=== PATIENT | male | born 1940 | race American Indian/Alaskan Native ===

== ENCOUNTER 2017-02-11 05:54 | Day surgery (SDC) | payer OTHER ==
[2017-02-10 14:45] VITALS: BMI 24.7
[2017-02-11] MEDS ORDERED: Propofol 10 mg/ml Inj (20 ML) ONE ×3 (07:43→08:44)
[2017-02-11] MEDS ORDERED: Lidocaine 2% Jelly (Uro-Jet) ONE (08:13)
[2017-02-11] MEDS ORDERED: Iohexol 240 (50 ml) ONE (08:13)
[2017-02-11] MEDS ORDERED: cefTRIAXone IV 1 gm in Dextros 50 ML IVPB ONE (08:13)
[2017-02-11] MEDS ORDERED: HYDROmorphone 0.5 mg/0.5 ml ISec IVP PRN (09:00)
--- NOTE | 2017-02-11 09:40 | PCM.SURG1 ---
Surgeon's Initial Post Op Note - Surgeon's Notes Surgeon: Kira ALMONTE Ballroom Dancer: NONE Type of Anesthesia: General Mask Pre-Operative Diagnosis: HEMATURIA Operative Findings: SAME. BPH. BLEEDING OF PROSTATIC ORIGIN Post-Operative Diagnosis: SAME Operation Performed: CYSTO. BILAT RTG PYELOGRAM. TUR-BX OF PROSTATE Specimen/Specimens Removed: PROSTATE Estimated Blood Loss: EBL {In ML}: 0 Blood Products Given: N/A Post-Op Condition: Good Date of Surgery/Procedure: 02/11/17 Time of Surgery/Procedure: 09:00
[2017-02-11 11:34] VITALS: BP 137/82; PULSE 56; RESP 18; TEMP 97.1; O2SAT 99
--- NOTE | 2017-02-13 08:40 | OP ---
PROCEDURE DATE: 02/11/2017 UROLOGY OPERATIVE REPORT PREOPERATIVE DIAGNOSIS: Hematuria. POSTOPERATIVE DIAGNOSES: Hematuria. Bleeding of prostatic origin, benign prostatic hypertrophy. PROCEDURE: Cystoscopy. Bilateral retrograde pyelogram. Evacuation of clots. Transurethral resecti on biopsy of prostate. OPERATING SURGEON: Chaya Bravo MD. DESCRIPTION OF PROCEDURE: The patient was placed in lithotomy position. The patient received periop erative antibiotics. Anesthesia was provided by the anesthesiologist. A 22-Swedish cystoscope sheath was introduced under direct vision. The procedure was performed under video endoscopic control, as well as under fluoroscopic control. The urethra, prostate, and bladder were inspected. FINDINGS: There was a mild stricture of the anterior urethra, which was dilated by passing the cysto scope sheath. The prostatic urethra was subocclusive. There were some nodules of prostatic tissue l ocated at the bladder neck and the proximal prostatic urethra on the right. There were bleeding vein s from this area of prostatic tissue. There was no bladder neck contraction. There was no bladder tumor. There was no bladder stone. There was no bladder diverticulum. There was moderate bladder trabeculation. The ureteral orifices were in normal position and shape bilaterally. Occlusive tip bilateral retrograde ureteropyelogram was performed. Iodinated contrast dye was instil led via cone-tipped catheter into each ureteral orifice. The ureters and the kidneys were viewed seq uentially. There was no evidence of filling defect or obstruction within the ureters or collecting systems. The bladder was inspected with 70-degree lens and confirmed the above findings. The cystoscope and sheath were removed. A 26-Swedish continuous flow resectoscope sheath was introduc ed under direct vision. The area of the abnormal prostatic tissue and bleeding prostatic tissue was resected. Fulguration was performed with electrocautery. Hemostasis was complete. A Castro catheter was inserted. Bladder drainage was clear. Rectal examination was performed. There was no abnormal pelvic mass fixation or induration. Prostat e was approximately 25-30 grams in size. Prostate was supple and smooth and symmetric without fixati on, induration, or nodularity. The patient tolerated the procedure without complication. Chaya Bravo MD cc: [phone] TT: 02/13/2017 08:39:34 jn
--- NOTE | 2017-02-14 15:28 | CARD ---
APPROVED REPORT EKG Measurement Heart [id number] <Conclusion> Normal sinus rhythm with sinus arrhythmia Normal ECG
--- NOTE | 2017-02-14 16:39 | RAD ---
HISTORY: HEMATURIA COMPARISON: No prior. FINDINGS: BOWEL: Normal. No obstruction. No free air. BONES: Normal. OTHER FINDINGS: None. IMPRESSION: Unremarkable bowel gas pattern.
--- NOTE | 2017-02-14 16:41 | RAD ---
PROCEDURE: Bilateral retrograde urography HISTORY: HEMATURIA COMPARISON: Not available TECHNIQUE: Intraoperative fluoroscopy was provided. Total time of fluoroscopy is less than 1 hour. FINDINGS: Nine fluoroscopic spot films are submitted demonstrating selective retrograde pyelo ureteral atrophy. No filling defect is demonstrated. There is no dilatation of the collecting system. Films are on file for review. IMPRESSION: Fluoroscopy provided.
== END 2017-02-11 13:18 | disposition home or self-care (01) ==
LOC: C.SDS 05:54
PROVIDERS: ATTEND Urology
DX: R31.9 Hematuria, unspecified (principal); N40.1 Benign prostatic hyperplasia with lower urinary tract symptoms
CPT/HCPCS: 52351; 55899; 74000; 76000; 82948; 88305; 93005; J0696; Q9966

== ENCOUNTER 2019-01-08 07:03 | Inpatient (IN) | payer OTHER, MEDICARE ==
[2019-01-08 07:03] VITALS: BMI 24.7
[2019-01-08] MEDS ORDERED: Sodium Chloride 0.9% 500 ML IV ONE (07:15)
[2019-01-08 07:35] LABS: BASO # 0.1 K/uL (0.0-0.2); BASO % 0.8 % (0.0-2.0); EOS # 0.4 K/uL (0.0-0.7); EOS % 4.4 % (0.0-4.0); HEMOGLOBIN 15.1 g/dL (12.0-18.0); LYMPH # 3.6 K/uL (1.0-4.3); LYMPH % 41.1 % (20.0-40.0); MEAN CORPUSCULAR HEMOGLOBIN 30.6 pg (27.0-31.0); MEAN CORPUSCULAR HGB CONC 33.6 g/dL (33.0-37.0); MEAN PLATELET VOLUME 9.2 fL (7.2-11.7); MONO # 0.7 K/uL (0.0-0.8); MONO % 8.4 % (0.0-10.0); NEUT % 45.3 % (50.0-75.0); NRBC % 0.1 % (0.0-2.0); RBC 4.93 Mil/uL (4.40-5.90); RED CELL DISTRIBUTION WIDTH 13.8 % (11.5-14.5); WHITE BLOOD COUNT 8.8 K/uL (4.8-10.8)
--- NOTE | 2019-01-08 07:35 | C.PDOC ---
History Of Present Illness Patient is an 78 y/o male who is an employee at [employer], presenting to the ED s/p syncopal episode. He arrives via rapid response team. As per team, patient was found on the floor face down, initially unresponsive but responded to them after some verbal stimuli. They noted patient to be cool, moist, and hypotensive. On arrival to the ED patient is awake and alert, conversational. Vital signs normal. Patient denies any headache, chest pain, SOB, dizziness, visual changes, abdominal pain, diarrhea, cough, fever, or URI symptoms. He reports he felt fine this morning. States he arrived to work around 6:00am and had breakfast, which is the last thing he remembers. Patient has a PMHx of diabetes and was recently started on new meds but he cannot recall which. PMD- Dr. Pham Time Seen by Provider: 01/08/19 07:14 Chief Complaint (Nursing): Syncope History Per: Patient History/Exam Limitations: no limitations Onset/Duration Of Symptoms: Mins Current Symptoms Are (Timing): Gone Number Of Syncopal Episodes: 1 Seizure Or Post-ictal Symptoms: None Possible Causative Factor(s): New Medications Past Medical History Reviewed: Historical Data, Nursing Documentation, Vital Signs - Medical History PMH: Diabetes, Malignancy (Prostate CA - no chemo) Denies: Chronic Kidney Disease Other Surgeries: Prostate removal Family History: States: Unknown Family Hx - Social History Hx Tobacco Use: No Hx Alcohol Use: No Hx Substance Use: No - Immunization History Hx Tetanus Toxoid Vaccination: Yes Hx Influenza Vaccination: Yes Hx Pneumococcal Vaccination: No Review Of Systems Except As Marked, All Systems Reviewed And Found Negative. Constitutional: Negative for: Fever, Chills Eyes: Negative for: Vision Change Cardiovascular: Negative for: Chest Pain, Palpitations Respiratory: Negative for: Shortness of Breath Gastrointestinal: Negative for: Nausea, Vomiting, Abdominal Pain, Diarrhea Neurological: Positive for: Other (syncope x1). Negative for: Weakness, Numbness, Change in Speech, Altered Mental Status, Headache Physical Exam - Physical Exam Appears: Non-toxic, No Acute Distress, Other (Appears comfortable, conversational, speaking in full sentences) Skin: Normal Color, Dry, No Rash Head: Atraumatic, Normacephalic Eye(s): bilateral: Normal Inspection, PERRL, EOMI Nose: Normal Oral Mucosa: Dry Neck: Normal ROM, Supple Chest: Symmetrical Cardiovascular: Rhythm Regular, No Murmur Respiratory: Normal Breath Sounds, No Rales, No Rhonchi, No Wheezing Gastrointestinal/Abdominal: Soft, No Tenderness, No Distention Back: Normal Inspection Extremity: Bilateral: Atraumatic, Normal Color And Temperature, Normal ROM Pulses: Left Dorsalis Pedis: Normal, Right Dorsalis Pedis: Normal Neurological/Psych: Normal Speech, Normal Cranial Nerves, Other (awake, alert, answering questions correctly) ED Course And Treatment - Laboratory Results Result Diagrams: 01/08/19 07:26 01/08/19 07:48 ECG: Interpreted By Me ECG Rhythm: Sinus Rhythm Interpretation Of ECG: no ST elevations or depressions Rate From EC Medical Decision Making Medical Decision Making: Impression: S/p syncopal episode Differential diagnosis includes but is not limited to: Hypoglycemia (though FS normal on arrival), vasovagal episode (unclear why), IL vs PE Initial Plan: - Blood work - EKG - Chest x-ray - 500mL bolus NS IV fluids - Reassess Spoke with Dr. Brunson, agrees with placing patient on Obs for 24 hours due to true syncope. Disposition Discussed With : Alexis Pham Counseled Patient/Family Regarding: Studies Performed, Diagnosis, Need For Followup - Disposition Disposition: HOSPITALIZED Disposition Time: 09:12 Condition: IMPROVED Forms: [facility] (Dominican) - Clinical Impression Clinical Impression: Syncope, Vasovagal syncope - Scribe Statement The provider has reviewed the documentation as recorded by the Hannah Randhawa Provider Attestation: All medical record entries made by the Moribelver were at my direction and personally dictated by me. I have reviewed the chart and agree that the record accurately reflects my personal performance of the history, physical exam, medical decision making, and the department course for this patient. I have also personally directed, reviewed, and agree with the discharge instructions and disposition. Decision To Admit - Pt Status Changed To: Hospital Disposition Of: Observation - . Bed Request Type: Telemetry Admitting Physician: Alexis Pham Patient Diagnosis: Syncope, Vasovagal syncope
--- NOTE | 2019-01-08 07:47 | PCM.RRT ---
PRESSER MACHINE Nurses Assessment - Situation Date: 01/08/19 Time PRESSER MACHINE was called: 06:39 PRESSER MACHINE Location:: 6T Med/Surg PRESSER MACHINE Reason for Call: Hypotension, Change in Mental Status PRESSER MACHINE Called By: RN - IV IV Inserted during PRESSER MACHINE?: Yes New IV Insertion Tolerance: Excellent - Respiratory PRESSER MACHINE Delivery Method: Room Air - Diagnostic Test Ordered EKG: Yes - Stat Labs Ordered PRESSER MACHINE Stat Labs Ordered: CBC, BMP, TROPONIN CPR started during PRESSER MACHINE?: No I.Reason for PRESSER MACHINE - A) Acute Change in Patient: (Select all that apply): Acute change in mental status, Acute change in SBP below Subjective: House doctor note PRESSER MACHINE called for house staff at 6:37AM Per nurse, staff member was coming in for morning shift at 7AM, was in the nursing call room on 6T and found on the floor lying face down. No witnessed fall. Patient was awake but confused. Patient had no recollection of how he ended up on floor. Initial vital signs: BP 72/45, HR 68 bpm, RR 17 99% O2 on RA, BG 170 Patient was kept supine with legs elevated and IV access established. NS was initiated. CBC, CMP, troponin series were drawn. CXR and CT head were obtained. Patient become more alert after IVF initiation, unable to recall events prior to LOC. Patient was transferred to cot and brought to ED for further monitoring. Last vital signs: 119/65, RR 17, HR 72, 99% RA - Neurological Status (Select all that apply): Confused - Respiratory Oxygen Delivery Method: Room Air - Constitutional Appears: Confused - Head Head Exam: ATRAUMATIC, NORMAL INSPECTION, NORMOCEPHALIC - Eyes Eye Exam: EOMI, Normal appearance, PERRL - Respiratory Exam Respiratory Exam: Decreased Breath Sounds, Clear to Ausculation Bilateral, NORMAL BREATHING PATTERN. absent: Accessory Muscle Use, Rales, Rhonchi, Wheezes, Respiratory Distress, Stridor - Cardiovascular Exam Cardiovascular Exam: REGULAR RHYTHM, +S1, +S2 - GI/Abdominal Exam GI & Abdominal Exam: Soft, Normal Bowel Sounds. absent: Distended, Firm, Guarding, Rigid, Tenderness, Rebound - Neurological Exam Neurological Exam: Alert, Awake - Extremities Exam Extremities Exam: Normal Capillary Refill, Normal Inspection. absent: Calf Tenderness, Pedal Edema
[2019-01-08 08:23] LABS: ALB/GLOB RATIO 1.2 (1.0-2.1); ALT/SGPT 15 U/L (21-72); AST/SGOT 51 U/L (17-59); BLOOD UREA NITROGEN 16 mg/dL (9-20); CALCIUM 9.3 mg/dl (8.6-10.4); GFR NON-AFRICAN AMERICAN 58
[2019-01-08 08:35] LABS: B-TYPE NATRIURETIC PEPTIDE 35.6 pg/mL (0-900)
--- NOTE | 2019-01-08 10:44 | RAD ---
Date of service: 01/08/2019 PROCEDURE: CHEST RADIOGRAPH, 1 VIEW HISTORY: chest pain COMPARISON: None available. FINDINGS: LUNGS: Clear. PLEURA: No pneumothorax or pleural fluid seen. CARDIOVASCULAR: There there is atherosclerotic calcification of the thoracic aortic arch. Normal. OSSEOUS STRUCTURES: No significant abnormalities. VISUALIZED UPPER ABDOMEN: Normal. OTHER FINDINGS: None. IMPRESSION: No active disease.
--- NOTE | 2019-01-08 11:25 | CT ---
Date of service: 01/08/2019 PROCEDURE: CT HEAD WITHOUT CONTRAST. HISTORY: Syncope COMPARISON: 12/03/2014. TECHNIQUE: Axial computed tomography images were obtained through the head/brain without intravenous contrast. Radiation dose: Total exam DLP = 1050.72 mGy-cm. This CT exam was performed using one or more of the following dose reduction techniques: Automated exposure control, adjustment of the mA and/or kV according to patient size, and/or use of iterative reconstruction technique. FINDINGS: HEMORRHAGE: No intracranial hemorrhage. BRAIN: There are mild chronic microangiopathic changes. There is no mass, mass effect or abnormal extra-axial fluid collection. There is no territorial infarction. The midline sagittal structures are normal. VENTRICLES: There is mild age-related global parenchymal volume loss and proportionate enlargement of the ventricles and cortical sulci. There is a cavum septum pellucidum. CALVARIUM: There is no calvarial fracture or extracranial soft tissue swelling. PARANASAL SINUSES: Predominantly clear. MASTOID AIR CELLS: Predominantly clear. OTHER FINDINGS: None. IMPRESSION: No acute intracranial abnormality.
[2019-01-08 11:55] LABS: CK-MB 1.13 ng/mL (0.0-3.38)
[2019-01-08 11:58] LABS: TROPONIN I 0.013 ng/mL (0.00-0.120)
[2019-01-08] MEDS: (Novolin R) Insulin Human Regular 100 units/ml vial SC SCH ×3 (13:32→21:49)
[2019-01-08 19:06] LABS: CK-MB 1.56 ng/mL (0.0-3.38)
--- NOTE | 2019-01-08 19:56 | CARD ---
APPROVED REPORT Date of service: 01/08/2019 EXAM: Two-dimensional and M-mode echocardiogram with Doppler and color Doppler. Other Information Quality : GoodRhythm : INDICATION Syncope RISK FACTORS Diabetes 2D DIMENSIONS IVSd0.9 (0.7-1.1cm)LVDd4.1 (3.9-5.9cm) PWd0.8 (0.7-1.1cm)LA Beihvt81 (18-58mL) LVDs2.4 (2.5-4.0cm)FS (%) 42.2 % LVEF (%)73.7 (>50%)LVEF (Lima's)60.55 % M-Mode DIMENSIONS Left Atrium (MM)3.31 (2.5-4.0cm)IVSd0.76 (0.7-1.1cm) Aortic Root3.52 (2.2-3.7cm)LVDd4.42 (4.0-5.6cm) Aortic Cusp Exc.2.24 (1.5-2.0cm)PWd0.74 (0.7-1.1cm) FS (%) 41 %LVDs2.61 (2.0-3.8cm) LVEF (%)72 (>50%) Mitral Valve MV E Lfoaxqxu98.4cm/sMV A Xdzdrkqv608.1cm/sE/A ratio0.8 TDI Lateral E' Peak V8.16cm/sMedial E' Peak V7.32cm/sE/Lateral E'10.7 E/Medial E'11.9 Tricuspid Valve TR Peak Aitkygah564nx/sTR Peak Gr.2jwXyQCZK55krHw LEFT VENTRICLE The left ventricle is normal size. There is normal left ventricular wall thickness. The left ventricular function is normal. The left ventricular ejection fraction is within the normal range. No regional wall motion abnormalities noted. The left ventricular diastolic function is normal. No left ventricle thrombus noted on this study. There is no ventricular septal defect visualized. There is no left ventricular aneurysm. There is no mass noted in the left ventricle. RIGHT VENTRICLE The right ventricle is normal size. There is normal right ventricular wall thickness. The right ventricular systolic function is normal. ATRIA The left atrium size is normal. The right atrium size is normal. The interatrial septum is intact with no evidence for an atrial septal defect. AORTIC VALVE The aortic valve is normal in structure and function. No aortic regurgitation is present. There is no aortic valvular stenosis. There is no aortic valvular vegetation. MITRAL VALVE The mitral valve is normal in structure and function. There is no evidence of mitral valve prolapse. There is no mitral valve stenosis. There is no mitral valve regurgitation noted. TRICUSPID VALVE The tricuspid valve is normal in structure and function. There is no tricuspid valve regurgitation noted. There is no tricuspid valve prolapse or vegetation. There is no tricuspid valve stenosis. PULMONIC VALVE The pulmonary valve is normal in structure and function. There is no pulmonic valvular regurgitation. There is no pulmonic valvular stenosis. GREAT VESSELS The aortic root is normal in size. The ascending aorta is normal in size. The pulmonary artery is normal. The IVC is normal in size and collapses >50% with inspiration. PERICARDIAL EFFUSION The pericardium appears normal. There is no pleural effusion. <Conclusion> The left ventricular function is normal. The left ventricular ejection fraction is within the normal range. No regional wall motion abnormalities noted.
--- NOTE | 2019-01-09 06:13 | CP.PCM.HP ---
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 He came to the hospital to work 6 AM as usual, after he was taking his breakfast around 630 he fell on the floor, he was found on the floor. Patient did not recollect what happened. But he was recognizing voices to wake him up. He was more weak and he was blood pressure was noted to be on the low side. Patient was taken to the emergency room. In the emergency room patient was evaluated, initial blood test, and EKGs were negative. Patient needed hospitalization for further evaluation Past medical history: Hypertension diabetes high cholesterol Allergies no known drug allergy Surgical history: Vocal cord repair many years ago. Patient also had a colonoscopy screening done in 2010. She also had cystoscopy for hematuria. Family history nonspecific. Patient occasionally drinks alcohol. He never smoker. Current medications: Metformin 500 mg, glimepiride 1 mg, Crestor 10 mg. Review of system: Noted from the chart. Patient is feeling well. He has no chest pain no shortness of breath. No weakness in the legs noted. No urinary incontinence On examination: Vital signs are stable. Chest good air entry Regular heart sounds Nontender abdomen. No pedal edema alert awake oriented x3 no functional neurological deficit BILL CLERK patient's labs reviewed Nonspecific labs noted. EKG normal sinus rhythm, no ST-T changes noted. CT scan of the head reveals no acute pathology. Carotid Doppler results are pending Echocardiogram normal LV function noted Assessment and recommendation: 78-year-old male with a history of diabetes hypertension high cholesterol and a history of vocal cord surgery, bladder surgery in the past admitted to the hospital with acute syncopal attack. Most likely vasovagal in the nature. Unclear at this time. We will continue to do further workup. Patient is clinically otherwise stable. We will get a CT scan of the abdomen pelvis and also chest without contrast. Discharge plan tomorrow Present on Admission - Present on Admission Any Indicators Present on Admission: No History of DVT/PE: No History of Uncontrolled Diabetes: No Urinary Catheter: No Decubitus Ulcer Present: No Past Patient History - Past Medical History & Family History Past Medical History?: Yes - Past Social History Smoking Status: Never Smoked - CARDIAC Hx Cardiac Disorders: No - PULMONARY Hx Respiratory Disorders: No - NEUROLOGICAL Hx Neurological Disorder: No - HEENT Hx HEENT Problems: No - RENAL Hx Chronic Kidney Disease: No - ENDOCRINE/METABOLIC Hx Endocrine Disorders: No Hx Diabetes Mellitus Type 2: Yes - HEMATOLOGICAL/ONCOLOGICAL Hx Blood Disorders: Yes Hx Cancer: Yes ("HX.PROSTATE CANCER-NO CHEMO") - INTEGUMENTARY Hx Dermatological Problems: No - MUSCULOSKELETAL/RHEUMATOLOGICAL Hx Falls: Yes - GASTROINTESTINAL Hx Gastrointestinal Disorders: No - GENITOURINARY/GYNECOLOGICAL Hx Genitourinary Disorders: Yes Hx Hematuria: Yes Hx Prostate Cancer: Yes - PSYCHIATRIC Hx Substance Use: No - SURGICAL HISTORY Hx Surgeries: Yes Other/Comment: HX: "DR. ALMONTE REMOVED MY PROSTATE, DUE TO CANCER-NO CHEMO." - ANESTHESIA Hx Anesthesia: Yes Hx Anesthesia Reactions: No Hx Malignant Hyperthermia: No Has any member of the family had a problem w/ anesthesia?: No Meds Allergies/Adverse Reactions: Allergies Allergy/AdvReac Type Severity Reaction Status Date / Time No Known Allergies Allergy Verified 05/23/16 13:07 Results - Vital Signs Recent Vital Signs: Last Vital Signs Temp 98.6 F 01/09/19 00:00 Pulse 53 L 01/09/19 04:00 Resp 17 01/09/19 04:00 BP 105/56 L 01/08/19 20:00 Pulse Ox 99 01/09/19 04:00 - Labs Result Diagrams: 01/08/19 07:26 01/08/19 07:48 Labs: Laboratory Results - last 24 hr 01/08/19 01/08/19 01/08/19 07:26 07:48 11:05 WBC 8.8 RBC 4.93 Hgb 15.1 Hct 44.9 MCV 91.0 MCH 30.6 MCHC 33.6 RDW 13.8 Plt Count 261 MPV 9.2 Neut % (Auto) 45.3 L Lymph % (Auto) 41.1 H [place] % (Auto) 8.4 Eos % (Auto) 4.4 H Baso % (Auto) 0.8 Neut # (Auto) 4.0 Lymph # (Auto) 3.6 [place] # (Auto) 0.7 Eos # (Auto) 0.4 Baso # (Auto) 0.1 APTT Sodium 136 Potassium 4.2 Chloride 103 Carbon Dioxide 25 Anion Gap 12 BUN 16 Creatinine 1.2 Est GFR ( Amer) > 60 Est GFR (Non-Af Amer) 58 POC Glucose (mg/dL) 208 H Random Glucose 165 H D Calcium 9.3 Total Bilirubin 0.9 AST 51 ALT 15 L D Alkaline Phosphatase 84 Total Creatine Kinase CK-MB (Mass) Troponin I < 0.0120 NT-Pro-B Natriuret Pep 35.6 Total Protein 7.4 Albumin 4.0 Globulin 3.4 Albumin/Globulin Ratio 1.2 01/08/19 01/08/19 01/08/19 11:24 15:57 18:38 WBC RBC Hgb Hct MCV MCH MCHC RDW Plt Count MPV Neut % (Auto) Lymph % (Auto) [place] % (Auto) Eos % (Auto) Baso % (Auto) Neut # (Auto) Lymph # (Auto) [place] # (Auto) Eos # (Auto) Baso # (Auto) APTT Sodium Potassium Chloride Carbon Dioxide Anion Gap BUN Creatinine Est GFR ( Amer) Est GFR (Non-Af Amer) POC Glucose (mg/dL) 136 H Random Glucose Calcium Total Bilirubin AST ALT Alkaline Phosphatase Total Creatine Kinase 108 125 CK-MB (Mass) 1.13 1.56 Troponin I 0.0130 < 0.0120 NT-Pro-B Natriuret Pep Total Protein Albumin Globulin Albumin/Globulin Ratio 01/08/19 01/09/19 21:02 05:56 WBC RBC Hgb Hct MCV MCH MCHC RDW Plt Count MPV Neut % (Auto) Lymph % (Auto) [place] % (Auto) Eos % (Auto) Baso % (Auto) Neut # (Auto) Lymph # (Auto) [place] # (Auto) Eos # (Auto) Baso # (Auto) APTT 30 Sodium Potassium Chloride Carbon Dioxide Anion Gap BUN Creatinine Est GFR ( Amer) Est GFR (Non-Af Amer) POC Glucose (mg/dL) 147 H Random Glucose Calcium Total Bilirubin AST ALT Alkaline Phosphatase Total Creatine Kinase CK-MB (Mass) Troponin I NT-Pro-B Natriuret Pep Total Protein Albumin Globulin Albumin/Globulin Ratio
[2019-01-09 07:56] LABS: BASO % 0.6 % (0.0-2.0); EOS # 0.3 K/uL (0.0-0.7); EOS % 4.2 % (0.0-4.0); LYMPH # 2.8 K/uL (1.0-4.3); LYMPH % 35.9 % (20.0-40.0); MEAN CELL VOLUME 91.4 fL (80.0-94.0); MEAN CORPUSCULAR HEMOGLOBIN 30.5 pg (27.0-31.0); MEAN CORPUSCULAR HGB CONC 33.4 g/dL (33.0-37.0); MEAN PLATELET VOLUME 8.4 fL (7.2-11.7); MONO # 0.8 K/uL (0.0-0.8); MONO % 10.6 % (0.0-10.0); NEUT # 3.8 K/uL (1.8-7.0); NEUT % 48.7 % (50.0-75.0); RBC 4.58 Mil/uL (4.40-5.90); RED CELL DISTRIBUTION WIDTH 13.8 % (11.5-14.5); WHITE BLOOD COUNT 7.7 K/uL (4.8-10.8)
[2019-01-09] MEDS: (Novolin R) Insulin Human Regular 100 units/ml vial SC SCH ×3 (08:54→22:15)
[2019-01-09] MEDS ORDERED: Iohexol 240 (50 ml) PO ONE (09:00)
--- NOTE | 2019-01-09 14:32 | CT ---
Date of service: 01/09/2019 PROCEDURE: CT Abdomen and Pelvis. HISTORY: Hematoma COMPARISON: Comparison made with CT scan abdomen pelvis 02/11/2017. TECHNIQUE: Contiguous axial images of the abdomen and pelvis. Oral contrast was administered. No IV contrast given. Coronal and Sagittal reformats generated. Radiation dose: Total exam DLP = 442.24 mGy-cm. This CT exam was performed using one or more of the following dose reduction techniques: Automated exposure control, adjustment of the mA and/or kV according to patient size, and/or use of iterative reconstruction technique. FINDINGS: LOWER THORAX: Unremarkable. Heart appears borderline enlarged. No significant pericardial effusion. Small hiatal hernia with on oral contrast material seen in the distal esophagus consistent with reflux. Minor passive/dependent type atelectasis seen both posterior lower lung [place]. There are also mild fibrotic scarring changes in the right lung base including the middle lobe. LIVER: Unremarkable. No gross lesion or ductal dilatation. GALLBLADDER AND BILE DUCTS: Gallbladder physiologically distended . PANCREAS: Pancreas appears slightly atrophic and fatty replaced. EF HH hamate ischemic SPLEEN: Unremarkable. No splenomegaly. ADRENALS: Slightly prominent bilateral adrenal glands. KIDNEYS AND URETERS: right renal cyst of unchanged slightly larger in size than prior exam. No stone or hydronephrosis. BLADDER: Urinary bladder incompletely distended which in part accounts for thick-walled appearance. Muscular hypertrophy may contribute. Correlation with urinalysis to exclude cystitis. REPRODUCTIVE: Questionable TUR. Bilateral hydroceles left larger than right. APPENDIX: Appendix not seen with complete certainty however no obvious inflammatory changes right lower quadrant of the abdomen BOWEL: Evaluation of the bowel is somewhat limited due to incomplete opacification. The stomach is distended with an admixture of partially liquified food debris contrast material and air. Visualized loops of small bowel exhibit relatively normal contour and caliber. No evidence of acute mechanical small bowel obstruction with contrast material extending into the colon to the level of the distal transverse colon region. No definitive evidence of abnormal colonic mural wall thickening.. Contrast material is seen within the colon PERITONEUM: Unremarkable. No fluid collection. No free air. Small bilateral fat containing inguinal hernias. The LYMPH NODES: Unremarkable. No enlarged lymph nodes. VASCULATURE: Unremarkable. No aortic aneurysm. Minimal aortic atherosclerotic calcification or mural plaque present. BONES: Mild multilevel degenerative spondylosis of the lower thoracic and lumbar spine. OTHER FINDINGS: None. IMPRESSION: No evidence of acute intra abdominal hemorrhage. There is a small hiatal hernia with small amount of contrast in the distal esophagus consistent with reflux. Small right renal cyst slightly increased in size from prior study. Urinary bladder wall thickening in part due to incomplete distention and muscular hypertrophy however cystitis or other intrinsic wall lesion not excluded. Questionable TUR. Bilateral heart is still left larger than right.
--- NOTE | 2019-01-09 16:04 | CP.PCM.DIS ---
Provider - Provider Date of Admission: 01/08/19 09:13 Attending physician: Alexis Pham MD Hospital Course - Lab Results Lab Results: Micro Results 01/08/19 11:24 Naris MRSA Culture (Admit) - Final MRSA NOT DETECTED Most Recent Lab Values WBC 7.7 K/uL (4.8-10.8) 01/09/19 07:53 RBC 4.58 Mil/uL (4.40-5.90) 01/09/19 07:53 Hgb 14.0 g/dL (12.0-18.0) 01/09/19 07:53 Hct 41.8 % (35.0-51.0) 01/09/19 07:53 MCV 91.4 fL (80.0-94.0) 01/09/19 07:53 MCH 30.5 pg (27.0-31.0) 01/09/19 07:53 MCHC 33.4 g/dL (33.0-37.0) 01/09/19 07:53 RDW 13.8 % (11.5-14.5) 01/09/19 07:53 Plt Count 217 K/uL (130-400) 01/09/19 07:53 MPV 8.4 fL (7.2-11.7) 01/09/19 07:53 Neut % (Auto) 48.7 % (50.0-75.0) L 01/09/19 07:53 Lymph % (Auto) 35.9 % (20.0-40.0) 01/09/19 07:53 [place] % (Auto) 10.6 % (0.0-10.0) H 01/09/19 07:53 Eos % (Auto) 4.2 % (0.0-4.0) H 01/09/19 07:53 Baso % (Auto) 0.6 % (0.0-2.0) 01/09/19 07:53 Neut # (Auto) 3.8 K/uL (1.8-7.0) 01/09/19 07:53 Lymph # (Auto) 2.8 K/uL (1.0-4.3) 01/09/19 07:53 [place] # (Auto) 0.8 K/uL (0.0-0.8) 01/09/19 07:53 Eos # (Auto) 0.3 K/uL (0.0-0.7) 01/09/19 07:53 Baso # (Auto) 0.0 K/uL (0.0-0.2) 01/09/19 07:53 APTT 30 SECONDS (21-34) 01/09/19 05:56 Sodium 136 mmol/L (132-148) 01/08/19 07:48 Potassium 4.2 mmol/L (3.6-5.2) 01/08/19 07:48 Chloride 103 mmol/L (98-107) 01/08/19 07:48 Carbon Dioxide 25 mmol/L (22-30) 01/08/19 07:48 Anion Gap 12 (10-20) 01/08/19 07:48 BUN 16 mg/dL (9-20) 01/08/19 07:48 Creatinine 1.2 mg/dL (0.8-1.5) 01/08/19 07:48 Est GFR ( Amer) > 60 01/08/19 07:48 Est GFR (Non-Af Amer) 58 01/08/19 07:48 POC Glucose (mg/dL) 216 mg/dL (65-110) H 01/09/19 11:35 Random Glucose 165 mg/dL (75-110) H D 01/08/19 07:48 Calcium 9.3 mg/dl (8.6-10.4) 01/08/19 07:48 Total Bilirubin 0.9 mg/dL (0.2-1.3) 01/08/19 07:48 AST 51 U/L (17-59) 01/08/19 07:48 ALT 15 U/L (21-72) L D 01/08/19 07:48 Alkaline Phosphatase 84 U/L (38-126) 01/08/19 07:48 Total Creatine Kinase 125 U/L (55-170) 01/08/19 18:38 CK-MB (Mass) 1.56 ng/mL (0.0-3.38) 01/08/19 18:38 Troponin I < 0.0120 ng/mL (0.00-0.120) 01/08/19 18:38 NT-Pro-B Natriuret Pep 35.6 pg/mL (0-900) 01/08/19 07:48 Total Protein 7.4 g/dL (6.3-8.3) 01/08/19 07:48 Albumin 4.0 g/dL (3.5-5.0) 01/08/19 07:48 Globulin 3.4 gm/dL (2.2-3.9) 01/08/19 07:48 Albumin/Globulin Ratio 1.2 (1.0-2.1) 01/08/19 07:48 Discharge Exam - Head Exam Head Exam: ATRAUMATIC, NORMAL INSPECTION, NORMOCEPHALIC Discharge Plan - Follow Up Plan Condition: IMPROVED Disposition: HOME/ ROUTINE
--- NOTE | 2019-01-09 19:55 | CARD ---
APPROVED REPORT Date of service: 01/08/2019 EKG Measurement Heart [id number] <Conclusion> Normal sinus rhythm Normal ECG
--- NOTE | 2019-01-09 21:37 | CP.PCM.PN ---
Subjective - Date & Time of Evaluation Date of Evaluation: 01/09/19 Time of Evaluation: 21:36 - Subjective Subjective: Patient today feeling well. He had a CAT scan of the abdomen and pelvis negative. Labs reviewed nonspecific. Clinically stable. Patient was initially was given for discharge, but unsafe discharge patient will need a social work assistant evaluation and immigration case workerclinical outcomes manager. We will continue the current treatment Objective - Vital Signs/Intake and Output Vital Signs (last 24 hours): Temp Pulse Resp BP Pulse Ox 98.1 F 62 15 116/50 L 100 01/09/19 12:00 01/09/19 16:00 01/09/19 16:00 01/09/19 15:22 01/09/19 12:00 Intake and Output: 01/09/19 01/10/19 18:59 06:59 Intake Total 400 Balance 400 - Medications Medications: Current Medications Heparin Sodium (Porcine) (Heparin) 5,000 units SC Q8 [facility] Last Admin: 01/09/19 14:51 Dose: Not Given Insulin Human Regular (Novolin R) 0 unit SC [facility]; Protocol Last Admin: 01/09/19 12:33 Dose: 2 units - Labs Labs: 01/09/19 07:53 01/08/19 07:48 APTT 30 SECONDS (21-34) 01/09/19 05:56
[2019-01-10 08:52] VITALS: O2SAT 98
[2019-01-10] MEDS: (Novolin R) Insulin Human Regular 100 units/ml vial SC SCH ×4 (09:27→22:01)
--- NOTE | 2019-01-10 12:21 | CARD ---
APPROVED REPORT Date of service: 01/09/2019 EKG Measurement Heart [id number] <Conclusion> Sinus bradycardia Septal infarct, age undetermined Abnormal ECG
--- NOTE | 2019-01-10 21:37 | CP.PCM.PN ---
Subjective - Date & Time of Evaluation Date of Evaluation: 01/10/19 Time of Evaluation: 21:36 - Subjective Subjective: Patient today feeling well, no chest pain or shortness of breath noted. Vital signs stable. Clinically stable otherwise. Patient will possibly discharge tomorrow home. Objective - Vital Signs/Intake and Output Vital Signs (last 24 hours): Temp Pulse Resp BP Pulse Ox 98.1 F 61 18 147/66 98 01/10/19 08:34 01/10/19 08:52 01/10/19 08:52 01/10/19 08:52 01/10/19 08:52 Intake and Output: 01/10/19 01/11/19 18:59 06:59 Intake Total 350 Balance 350 - Medications Medications: Current Medications Heparin Sodium (Porcine) (Heparin) 5,000 units SC Q8 [facility] Last Admin: 01/10/19 13:02 Dose: 5,000 units Insulin Human Regular (Novolin R) 0 unit SC [facility]; Protocol Last Admin: 01/10/19 16:40 Dose: Not Given - Labs Labs: 01/09/19 07:53 01/08/19 07:48 APTT 30 SECONDS (21-34) 01/09/19 05:56
--- NOTE | 2019-01-10 21:38 | CP.PCM.DIS ---
Provider - Provider Date of Admission: 01/09/19 19:17 Attending physician: Alexis Pham MD Consults: 01/09/19 21:54 Social Work Referral Routine Comment: discharge on hold til seen by psychiatric social worker Physician Instructions: Reason For Exam: discharge planning needs Time Spent in preparation of Discharge (in minutes): 45 Hospital Course - Lab Results Lab Results: Micro Results 01/08/19 11:24 Naris MRSA Culture (Admit) - Final MRSA NOT DETECTED Most Recent Lab Values WBC 7.7 K/uL (4.8-10.8) 01/09/19 07:53 RBC 4.58 Mil/uL (4.40-5.90) 01/09/19 07:53 Hgb 14.0 g/dL (12.0-18.0) 01/09/19 07:53 Hct 41.8 % (35.0-51.0) 01/09/19 07:53 MCV 91.4 fL (80.0-94.0) 01/09/19 07:53 MCH 30.5 pg (27.0-31.0) 01/09/19 07:53 MCHC 33.4 g/dL (33.0-37.0) 01/09/19 07:53 RDW 13.8 % (11.5-14.5) 01/09/19 07:53 Plt Count 217 K/uL (130-400) 01/09/19 07:53 MPV 8.4 fL (7.2-11.7) 01/09/19 07:53 Neut % (Auto) 48.7 % (50.0-75.0) L 01/09/19 07:53 Lymph % (Auto) 35.9 % (20.0-40.0) 01/09/19 07:53 [place] % (Auto) 10.6 % (0.0-10.0) H 01/09/19 07:53 Eos % (Auto) 4.2 % (0.0-4.0) H 01/09/19 07:53 Baso % (Auto) 0.6 % (0.0-2.0) 01/09/19 07:53 Neut # (Auto) 3.8 K/uL (1.8-7.0) 01/09/19 07:53 Lymph # (Auto) 2.8 K/uL (1.0-4.3) 01/09/19 07:53 [place] # (Auto) 0.8 K/uL (0.0-0.8) 01/09/19 07:53 Eos # (Auto) 0.3 K/uL (0.0-0.7) 01/09/19 07:53 Baso # (Auto) 0.0 K/uL (0.0-0.2) 01/09/19 07:53 APTT 30 SECONDS (21-34) 01/09/19 05:56 Sodium 136 mmol/L (132-148) 01/08/19 07:48 Potassium 4.2 mmol/L (3.6-5.2) 01/08/19 07:48 Chloride 103 mmol/L (98-107) 01/08/19 07:48 Carbon Dioxide 25 mmol/L (22-30) 01/08/19 07:48 Anion Gap 12 (10-20) 01/08/19 07:48 BUN 16 mg/dL (9-20) 01/08/19 07:48 Creatinine 1.2 mg/dL (0.8-1.5) 01/08/19 07:48 Est GFR ( Amer) > 60 01/08/19 07:48 Est GFR (Non-Af Amer) 58 01/08/19 07:48 POC Glucose (mg/dL) 197 mg/dL (65-110) H 01/10/19 20:53 Random Glucose 165 mg/dL (75-110) H D 01/08/19 07:48 Calcium 9.3 mg/dl (8.6-10.4) 01/08/19 07:48 Total Bilirubin 0.9 mg/dL (0.2-1.3) 01/08/19 07:48 AST 51 U/L (17-59) 01/08/19 07:48 ALT 15 U/L (21-72) L D 01/08/19 07:48 Alkaline Phosphatase 84 U/L (38-126) 01/08/19 07:48 Total Creatine Kinase 125 U/L (55-170) 01/08/19 18:38 CK-MB (Mass) 1.56 ng/mL (0.0-3.38) 01/08/19 18:38 Troponin I < 0.0120 ng/mL (0.00-0.120) 01/08/19 18:38 NT-Pro-B Natriuret Pep 35.6 pg/mL (0-900) 01/08/19 07:48 Total Protein 7.4 g/dL (6.3-8.3) 01/08/19 07:48 Albumin 4.0 g/dL (3.5-5.0) 01/08/19 07:48 Globulin 3.4 gm/dL (2.2-3.9) 01/08/19 07:48 Albumin/Globulin Ratio 1.2 (1.0-2.1) 01/08/19 07:48 - Hospital Course Hospital Course: Chief complaints: Syncopal attack HPI: 78-year-old male with a history of diabetes, hypertension, hypercholesterolemia and also history of bladder dysfunction was brought into the emergency room after he was 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 He came to the hospital to work 6 AM as usual, after he was taking his breakfast around 630 he fell on the floor, he was found on the floor. Patient did not recollect what happened. But he was recognizing voices to wake him up. He was more weak and he was blood pressure was noted to be on the low side. Patient was taken to the emergency room. In the emergency room patient was evaluated, initial blood test, and EKGs were negative. Patient needed hospitalization for further evaluation Past medical history: Hypertension diabetes high cholesterol Allergies no known drug allergy Surgical history: Vocal cord repair many years ago. Patient also had a colonoscopy screening done in 2010. She also had cystoscopy for hematuria. Family history nonspecific. Patient occasionally drinks alcohol. He never smoker. Current medications: Metformin 500 mg, glimepiride 1 mg, Crestor 10 mg. Review of system: Noted from the chart. Patient is feeling well. He has no chest pain no shortness of breath. No weakness in the legs noted. No urinary incontinence On examination: Vital signs are stable. Chest good air entry Regular heart sounds Nontender abdomen. No pedal edema alert awake oriented x3 no functional neurological deficit [employer] patient's labs reviewed Nonspecific labs noted. EKG normal sinus rhythm, no ST-T changes noted. CT scan of the head reveals no acute pathology. Carotid Doppler results are pending Echocardiogram normal LV function noted Assessment and recommendation: 78-year-old male with a history of diabetes hypertension high cholesterol and a history of vocal cord surgery, bladder surgery in the past admitted to the hospital with acute syncopal attack. Most likely vasovagal in the nature. Unclear at this time. We will continue to do further workup. Patient is clinically otherwise stable. We will get a CT scan of the abdomen pelvis and also chest without contrast. Discharge plan tomorrow Course in the hospital: Patient was hospitalized initially with a syncopal attack. Initial diagnosis was possible vasovagal syncope Patient was closely monitored in the telemetry. Patient underwent brain CT, carotid Doppler, echocardiogram. All the tests were negative. CT scan of the abdomen and pelvis negative for any bleeding. Stool guaiac was negative. Hemoglobin is stable. Final diagnosis: Vasovagal syncope. Hypertension, high cholesterol and diabetes. Patient will be discharged home and he will follow-up as an outpatient in 1 week Discharge Exam - Head Exam Head Exam: ATRAUMATIC, NORMAL INSPECTION, NORMOCEPHALIC Discharge Plan - Follow Up Plan Condition: IMPROVED Disposition: HOME/ ROUTINE Instructions: Vasovagal Response (DC), Syncope (DC) Additional Instructions: None
[2019-01-11 06:23] VITALS: TEMP 97.8
[2019-01-11] MEDS: (Novolin R) Insulin Human Regular 100 units/ml vial SC SCH ×2 (07:30→11:30)
[2019-01-11 14:33] VITALS: BP 126/74; PULSE 72; RESP 18
--- NOTE | 2019-01-11 21:05 | VASCLAB ---
Date of service: 01/08/2019 PROCEDURE: Carotid Duplex Exam. HISTORY: syncope COMPARISON: None available. TECHNIQUE: Grayscale and duplex Doppler evaluation of the cervical carotid and vertebral arteries were performed. The common carotid, carotid bifurcations and cervical Internal Carotid Artery (ICA) and proximal External Carotid Artery (ECA) were evaluated. The vertebral arteries were evaluated for gross patency and flow direction. Report prepared by Luis North, BS, RVT FINDINGS: RIGHT CAROTID ARTERIES: 1. Common Carotid Artery: No significant focal plaque formation of the right common carotid artery. Mild intimal hyperplasia. Maximum Peak Systolic velocity: 60 cm/sec: End-diastolic velocity 10 cm/sec. 2. Carotid Bifurcation: No significant focal plaque formation. Maximum Peak Systolic velocity: 47 cm/sec: End-diastolic velocity 8 cm/sec. 3. Internal Carotid Artery: Plaque description: No significant focal plaque 3.1. Proximal Segment: Peak systolic velocity 60 cm/sec: End-diastolic velocity 15 cm/sec - % stenosis 0-15% 3.2. Middle Segment: Peak systolic velocity 58 cm/sec: End-diastolic velocity 15 cm/sec - % stenosis 0-15% 3.3. Distal Segment: Peak systolic velocity 41 cm/sec: End-diastolic velocity 11 cm/sec - % stenosis 0-15% 4. External Carotid Artery: No significant focal plaque formation. Peak systolic velocity 68 cm/sec 5. ICA/CCA Ratio: 1.0 LEFT CAROTID ARTERIES: 1. Common Carotid Artery: No significant focal plaque formation of the left common carotid artery. Mild intimal hyperplasia. Maximum Peak Systolic velocity: 60 cm/sec: End-diastolic velocity 11 cm/sec. 2. Carotid Bifurcation: No significant focal plaque formation. Maximum Peak Systolic velocity: 37 cm/sec: End-diastolic velocity 6 cm/sec. 3. Internal Carotid Artery: Plaque description: No significant focal plaque. 3.1. Proximal Segment: Peak systolic velocity 79 cm/sec: End-diastolic velocity 22 cm/sec - % stenosis 0-15% 3.2. Middle Segment: Peak systolic velocity 74 cm/sec: End-diastolic velocity 18 cm/sec - % stenosis 0-15% 3.3. Distal Segment: Peak systolic velocity 37 cm/sec: End-diastolic velocity 6 cm/sec - % stenosis 0-15% 4. External Carotid Artery: No significant focal plaque formation. Peak systolic velocity 48 cm/sec 5. ICA/CCA Ratio: 1.8 VERTEBRAL ARTERIES: 1. Right Vertebral Artery: The right vertebral artery flow direction is antegrade. 2. Left Vertebral Artery: The left vertebral artery flow direction is antegrade. OTHER FINDINGS: 1. Right Brachial Blood pressure: 110 mmHg. 2. Left Brachial Blood pressure: 100 mmHg. IMPRESSION: RIGHT: Duplex scan does not suggest hemodynamically significant stenosis of the right extracranial carotid arteries. LEFT: Duplex scan does not suggest hemodynamically significant stenosis of the left extracranial carotid arteries.
== END 2019-01-11 14:00 | disposition home or self-care (01) | DRG 312 ==
LOC: C.ER 07:03 → C.9I 09:13 → OBSVTOIN 01-09 19:17
PROVIDERS: ADMIT Internal Medicine; ATTEND Internal Medicine
DX: R55 Syncope and collapse (principal); I10 Essential (primary) hypertension; E78.00 Pure hypercholesterolemia, unspecified; E11.9 Type 2 diabetes mellitus without complications; Z85.46 Personal history of malignant neoplasm of prostate; Z91.81 History of falling